=== PATIENT | female | born 1955 | race Caucasian/White ===

== ENCOUNTER 2023-09-02 09:24 | Outpatient (AMB) | payer MEDICARE, SELFPAY ==
--- NOTE | 2023-09-02 09:20 | A.OFFVIS_ITS ---
Intake Vital Signs 09/02/23 09:33 Height 5 ft 8 in Weight 198 lb 2 oz BMI 30.1 BP 136/72 Blood Pressure Location Lt brachial Position Sitting Respiration 16 Pulse 71 Pulse Source Pulse Oximeter Pulse Oximetry (%) 97 Oxygen Delivery Method Room Air Intake Visit Reasons: Numbness Intake Note: Pt presents to the office for new patient evaluation for numbness of toes on the right foot. She reports she was diagnosed with neuropathy about 8 years ago and this loss of sensation has gradually gotten worse. Field Collector Required: No Allergies cephalexin Allergy (Verified 09/02/23 09:31) Rash doxycycline Allergy (Verified 09/02/23 09:31) Rash latex Allergy (Verified 09/02/23:) Rash Penicillins Allergy (Verified 09/02/23:) Unknown prednisone Allergy (Verified 09/02/23:) Rash topical corticosteroids Allergy (Uncoded 09/02/23 09:) Rash Medication List - Last Reconciled 09/02/23 by Cande Christianson MD bupropion HCl 200 mg PO QAM carvedilol 6.25 mg PO BID cyanocobalamin (vitamin B-12) 1,000 mcg PO DAILY estradiol acetate (Femring) vaginal gabapentin 300 mg PO TID lorazepam 0.5 mg PO DAILY PRN paroxetine HCl 15 mg PO QPM progesterone micronized 100 mg PO BEDTIME HPI HPI Comments History of Present Illness Details 67y/o female comes for evaluation of num bness. It started about 8 years ago - started with weakness of her left foot, diagnosed iwth foot drop due to disc herniation and she also had numbness in her left foot .Later she started having right foot numbness.she was evaluated and diagnosed with Peripheral Neuropathy ? and was told it was from her back and has progressed since then. No symptoms in her hands. Now her main sensory symptoms are numbness and episodes of tingling in her right toes ( not the big toe).she c/o hip pain but no back, or shooting pain from the back. she is not sure if her left foot is numb now.she has some weakness and says she trips when she walks upstairs. she has urinary urgency . she denies neck pain, she had surgery in her neck 11 years ago by and has been doing good since then. she is a poor historian and says she is overwhelmed with her medical issues and her psychological issues. [facility] Medical History (Updated 09/02/23 @ 10:18 by Cande Christianson MD) Numbness and tingling of both legs Left foot drop Depression CKD (chronic kidney disease) Lumbar spondylosis Hyperlipidemia HTN (hypertension) Anxiety Cataract (lens) fragments in eye following cataract surgery, bilateral Surgical History H/O neck surgery H/O knee surgery Hx of colonoscopy Hx of laminectomy Family History Father CAD (coronary artery disease) Mother Dementia Social History Household Members: Spouse Housing: House Alcohol intake: current Patient Tobacco Use Status: Never used Tobacco Review of Systems Const Reports weight gain Musc Reports numbness and Reports tingling Neuro Reports numbness and Reports tingling Psych Reports anxiety and Reports depression Physical Exam Vital Signs: Last Vital Signs Pulse 71 09/02/23 09:33 Resp 16 09/02/23 09:33 BP 136/72 09/02/23 09:33 Pulse Ox 97 09/02/23 09:33 Oxygen Delivery Method Room Air 09/02/23 09:33 BMI result Body Mass Index 30.1 Const General: cooperative, healthy appearing and comfortable Nutritional Appearance: average body habitus Orientation/consciousness: patient oriented x3 Eyes Pupils: Equal, round and reactive pupils present Neuro Other: mild left foot weakness Semaj foot - varicosities , bunion in left redness in the semaj feet General: patient oriented x3, No gait normal, tone normal and moves all extremities Cranial nerves: Yes Facial sensation intact/muscles of mastication intact, Yes Equal, round and reactive pupils present, Yes Bilaterally intact EOM present, Yes Nystagmus not present, Yes Normal facial strength present, Yes Midline tongue present and Yes Symmetric palate elevation present Cognition (Neuro): normal cognition Gait exam (Neuro): Normal gait present Deep tendon reflexes (DTR's): Right triceps reflex intensity grade: 1+, Left triceps reflex intensity grade: 1+, Rt Biceps (C5, C6): 1+, Left biceps reflex intensity grade: 1+, Right brachioradialis reflex intensity grade: 1+, Left brachioradialis reflex intensity grade: 1+, Right patellar reflex intensity grade: 1+ and Left patellar reflex intensity grade: 0 Coordination: [id number] test normal Psych Affect: Anxious affect present Assessment & Plan Assessment & Plan (1) Numbness: Code(s): R20.0 - Anesthesia of skin (2) Left foot drop: Code(s): M21.372 - Foot drop, left foot Plan EMG Nerve conduction study to evaluate will consider referral to podiatry suggested compression socks Orders: Orders NE electromyogram (EMG) Today R20.0 - Anesthesia of skin, R20.2 - Paresthesia of skin Coding Level of Care Code New Pt Level 4 (10158) Diagnoses Numbness R20.0 Left foot drop M21.372
[2023-09-02 09:33] VITALS: BP 136/72; PULSE 71; RESP 16; O2SAT 97; BMI 30.1
== END 2023-09-02 10:23 | disposition home or self-care (01) ==
PROVIDERS: PCP Family Medicine; Visit Provider Psychiatry & Neurology Neurology
DX: R20.0 Anesthesia of skin (principal); M21.372 Foot drop, left foot
CPT/HCPCS: 99204

== ENCOUNTER → 2023-09-02 09:24 | Outpatient (BNVA) | payer MEDICARE, SELFPAY | PROVIDERS: PCP Family Medicine; Visit Provider Psychiatry & Neurology Neurology | DX: R20.0 Anesthesia of skin (principal); M21.372 Foot drop, left foot | CPT/HCPCS: 99202 ==

== ENCOUNTER 2023-12-27 13:42 | Outpatient (AMB) | payer MEDICARE, SELFPAY ==
--- NOTE | 2023-12-27 13:14 | MHC.OFFVIS ---
Intake Vital Signs 12/27/23 13:44 Height 5 ft 8 in Weight 197 lb BMI 30.0 Pulse 75 Pulse Source Pulse Oximeter Pulse Oximetry (%) 100 Oxygen Delivery Method Room Air Intake Visit Reasons: Shortness of breath Life Enrichment Director Required: No Stone Gang Sawyer: Stone Gang Sawyer offered & declined Accompanied by: Spouse Allergies cephalexin Allergy (Verified 12/27/23 13:49) Rash doxycycline Allergy (Verified 12/27/23 13:49) Rash latex Allergy (Verified 12/27/23 13:49) Rash Penicillins Allergy (Verified 12/27/23 13:49) Unknown prednisone Allergy (Verified 09/02/23 09:31) Rash topical corticosteroids Allergy (Uncoded 09/02/23 09:31) Rash HPI Shortness of breath HPI Details Nathalie is above 68-year-old female, never smoker, with underlying hypertension chronic kidney disease. She was referred by PCP for pulmonary evaluation. She reports persistent dry cough, dyspnea with moderate exertion and intermittent wheezing that developed mid September after URI. She was treated with doxycycline, prednisone, then a Z-Paul for persistent symptoms. Chest x-ray on 11/20 was negative for anything acute. Reports testing +RSV during this time. On December 10 she was started on an ICS with slowly resolving symptoms however discontinued after two weeks of use. Reports no improvement with albuterol. Patient denies any prior history of asthma. Patient denies any occupational exposures, works as a staff radiation therapist at [employer]. She reports environmental allergies, no recent testing. She denies post nasal drip. She reports sister with asthma otherwise denies any pertinent family history. [facility] Medical History (Updated 12/27/23 @ 16:05 by Sheron Barry NP) Numbness and tingling of both legs Left foot drop Depression CKD (chronic kidney disease) Lumbar spondylosis Hyperlipidemia HTN (hypertension) Anxiety Cataract (lens) fragments in eye following cataract surgery, bilateral Surgical History H/O neck surgery H/O knee surgery Hx of colonoscopy Hx of laminectomy Family History Father CAD (coronary artery disease) Mother Dementia Social History (Updated 12/27/23 @ 13:54 by Alexus Crocker LPN) Household Members: Spouse Housing: House Alcohol intake: current Patient Tobacco Use Status: Never used Tobacco Review of Systems Const Denies chills, Denies excessive sweating, Denies fever(s), Denies headache(s) and Denies night sweats Eyes Denies dry eyes, Denies irritation and Denies itchy eyes ENT Reports Normal hearing present, Denies headache(s), Denies nasal congestion, Denies nasal discharge, Denies post nasal drip and Denies sore throat Card Denies chest pain, Denies chest pain at rest, Denies chest pain with activity, Denies claudication, Denies leg edema, Denies dyspnea, Reports dyspnea on exertion, Denies orthopnea and Denies paroxysmal nocturnal dyspnea Resp Denies chest congestion, Reports cough, Denies excessive phlegm production, Denies pain on inspiration, Denies pain with cough, Denies dyspnea, Reports dyspnea on exertion, Denies stridor and Reports wheezing Musc Denies myalgias Neuro Reports Normal hearing present and Denies headache(s) Endo Denies excessive sweating Freeman/Lymph Denies lymphadenopathy Aller/Immun Denies itchy eyes, Denies seasonal rhinorrhea and Reports wheezing Physical Exam Vital Signs: Last Vital Signs Pulse 75 12/27/23 13:44 Pulse Ox 100 12/27/23 13:44 Oxygen Delivery Method Room Air 12/27/23 13:44 BMI result Body Mass Index 30.0 Const General: cooperative, healthy appearing, comfortable, no acute distress, well developed and alert Orientation/consciousness: patient oriented x3 Limitations: no limitations HEENT Head: Yes normal to inspection, Yes normocephalic and Yes atraumatic Ears: hearing grossly normal bilaterally and external ears normal Eyes General: appearance normal, both eyes and all related structures Eyelids: Yes eyelids normal Sclerae: sclerae normal EOM: EOMs intact bilaterally Neck Neck: Yes normal visual inspection and Yes no lymphadenopathy Lymphatic: no lymphadenopathy noted Chest Chest palpation & inspection: normal inspection of the chest Resp Other: diminished lung sounds improved after albuterol neb Effort & Inspection: normal respiratory effort, able to speak in complete sentences, no audible wheezes, no cough, no stridor, not tachypneic, no tripod positioning and no use of accessory muscles Auscultation: clear to auscultation bilaterally Cardio Jugular venous distension: no JVD Rate: regular rate Rhythm: regular rhythm Skin Other: warm, dry General skin exam: no rashes or lesions noted Neuro General: patient oriented x3 Cranial nerves: Yes Normal hearing present Cognition (Neuro): normal cognition Gait exam (Neuro): Normal gait present Extrem General: Yes normal to inspection, Yes capillary refill normal, Yes no clubbing, cyanosis or edema and Yes no pedal edema Psych Appearance: grossly normal and well kempt Speech and movement: Normal speech and movement present and Clear speech present Affect: normal affect Attitude: cooperative Thought process: Normal thought process present Thought content: Normal thought content present Insight: Good insight present (Psych) Judgement: Good judgement present (Psych) Office Procedures Nebulizer Treatment Nebulizer Treatment [id number] RX initial, or Nebulizer Subsequent Treatment Office Meds albuterol sulfate 2.5 mg/3 mL (0.083 %) solution for nebulization Performing Provider: Sheron Barry NP Performing Location: [facility] Administered by: Alexus Crocker LPN on 12/27/23 14:00 Dose Route Admin Location Dispensed Lot Number Expiration Date [facility] Director News 2.5 mg inhalation 3 mL [id number] 09/26/24 [id number] [facility] Assessment & Plan Assessment & Plan (1) Cough: Code(s): R05.9 - Cough, unspecified (2) Dyspnea: Code(s): R06.00 - Dyspnea, unspecified (3) Environmental allergies: Code(s): Z91.09 - Other allergy status, other than to drugs and biological substances Parker Zelaya presents with slowly resolving dry cough and dyspnea after URI in September, despite doxycycline, azithromycin and prednisone. Will send for PFT to assess for any underlying obstructive defect contributing to symptoms as well as RAST testing. CXR unremarkable. Will send for chest CT to evaluate for any parenchymal disease contributing to cough. Nebulizer treatment with albuterol given with improvement in symptoms. Advised patient to restart ICS can use albuterol PRN. Will send in Qvar in place of Arnuity, as patient developed hoarseness with use. All questions were answered and patient is in agreement of plan. Will follow-up to review response to inhaler as well as results of PFT and chest CT. Orders: Orders AMB Nebulizer Treatment Today R05.9 - Cough, unspecified, R06.00 - Dyspnea, unspecified Immunoglobulin E Today Z91.09 - Other allergy status, other than to drugs and biological substances Complete Blood Count Auto Diff Today R05.9 - Cough, unspecified, R06.00 - Dyspnea, unspecified Resp Allergy Profile Region I Today Z91.09 - Other allergy status, other than to drugs and biological substances PFT pulmonary function test Today R06.00 - Dyspnea, unspecified CT chest wo IV con Today R05.9 - Cough, unspecified, R06.00 - Dyspnea, unspecified Medications: New beclomethasone dipropionate 40 mcg/actuation (Qvar RediHaler) 1 inh inhalation BID 10.6 grams 2RF Coding Level of Care Code New Pt Level 4 (25768) Diagnoses Cough R05.9 Dyspnea R06.00 Environmental allergies Z91.09 CPT Codes Nebulizer Treatment - Nebulizer Treatment, initial or subsequent: [id number]/MDI RX initial, or Nebulizer Subsequent Treatment ([id number])
[2023-12-27 13:44] VITALS: PULSE 75; O2SAT 100
== END 2023-12-27 14:44 | disposition home or self-care (01) ==
PROVIDERS: PCP Family Medicine; Visit Provider Nurse Practitioner Family
DX: R05.9 Cough, unspecified (principal); R06.00 Dyspnea, unspecified; Z91.09 Other allergy status, other than to drugs and biological substances
CPT/HCPCS: 99204

== ENCOUNTER → 2023-12-27 13:42 | Outpatient (BNVA) | payer MEDICARE, SELFPAY | PROVIDERS: PCP Family Medicine; Visit Provider Nurse Practitioner Family | DX: R05.9 Cough, unspecified (principal); R06.00 Dyspnea, unspecified; Z91.09 Other allergy status, other than to drugs and biological substances | CPT/HCPCS: 94640; 99202 ==

== ENCOUNTER 2024-01-01 10:25 | Outpatient (REF) | payer MEDICARE, SELFPAY ==
[2024-01-01 14:26] LABS: MANUAL DIFF FLAG NO
[2024-01-01 14:32] LABS: Basophils Percent Auto 0.6 % (0-2); Eosinophils Absolute Auto 0.3 X10*3/uL (0.0-0.4); Eosinophils Percent Auto 3.9 % (0-4); Hematocrit 39.7 % (37.0-47.0); Hemoglobin 12.8 g/dl (12.0-16.0); Imm Gran Abs Auto 0.02 X10*3/uL (0.00-0.03); Imm Gran Pct Auto 0.3 % (0.0-0.4); Lymphocytes Absolute Auto 2.4 X10*3/uL (1.2-4.9); Lymphocytes Percent Auto 33.6 % (20-40); Mean Corpuscular HGB Conc 32.2 g/dl (31.0-35.0); Mean Corpuscular Hemoglobin 31.8 pg (27.0-33.0); Mean Corpuscular Volume 98.5 fL (80.0-98.0); Mean Platelet Volume 10.4 fL (9.4-12.3); Monocytes Absolute Auto 0.7 X10*3/uL (0.1-1.2); Monocytes Percent Auto 9.5 % (2-11); Neutrophils Absolute Auto 3.7 x10*3/uL (2.0-8.3); Neutrophils Percent Auto 52.1 % (45-73); Platelet Count 309 X10*3/uL (160-400); Red Blood Count 4.03 X10*6/uL (4.20-5.50); Red Cell Distribution Width 13.6 % (11.0-16.0); White Blood Count 7.1 X10*3/uL (4.8-10.8)
[2024-01-09 10:36] LABS: Class Cottonwood 0/1; Immunoglobulin E 43
[2024-01-09 10:40] LABS: T014 - IgE Cottonwood 0.12 (H)
[2024-01-09 10:41] LABS: Class Cockroach 0; Class Dermatophagoides farinae 0; Class Mouse Urine Protein 0; D002 - IgE D farinae <0.10; E072-IgE Mouse Urine <0.10; I006-IgE Cockroach, German <0.10
[2024-01-09 10:42] LABS: Class Alternaria alternata 0; Class Aspergillus fumigatus 0; Class Bermuda Grass 0; Class Birch 0; Class Cat Dander 0; Class Cladosporium herbarum 0; Class Common Ragweed 0; Class Derm. pterony 0; Class Dog Dander 0; Class Elm 0; Class Maple Box Elder 0; Class Mountain Cedar 0; Class Mugwort 0; Class Oak 0; Class Penicillium crysogenum 0; Class Rough Pigweed 0; Class Sheep Sorrel 0; Class Sycamore 0; Class Timothy Grass 0; Class Walnut Tree 0; Class White Ash 0; Class White Mulberry 0; E001 - IgE Cat Dander <0.10; E005 - IgE Dog Dander <0.10
[2024-01-09 10:43] LABS: D001 IgE D pteronyssinus <0.10; G002 IgE Bermuda Grass <0.10; M001 IgE Penicillium chrysogen <0.10; T001 IgE Maple/Box Elder <0.10; T003 IgE Common Silver Birch <0.10; T008 IgE Elm, American <0.10; T015 - IgE Ash, White <0.10; T070 - IgE White Mulberry <0.10; W001 - IgE Ragweed, Short <0.10; W006 - IgE Mugwort <0.10; W014 IgE Pigweed, Common <0.10; W018 IgE Sheep Sorrel <0.10
[2024-01-09 10:44] LABS: G006 - IgE Timothy Grass <0.10; M002 - IgE Cladosporium herbar <0.10; M003 - IgE Aspergillus fumigat <0.10; M006 - IgE Alternaria alternat <0.10; T006 - IgE Cedar, Mountain <0.10; T007 - IgE Oak, White <0.10; T010 - IgE Walnut <0.10; T011 - IgE Maple Leaf Sycamore <0.10
== END 2024-01-01 10:26 | disposition home or self-care (01) ==
LOC: HO.WFDLDS 10:25
PROVIDERS: Visit Provider Nurse Practitioner Family
DX: Z91.09 Other allergy status, other than to drugs and biological substances (principal); R05.9 Cough, unspecified; R06.00 Dyspnea, unspecified
CPT/HCPCS: 36415; 82785; 85025; 86003

== ENCOUNTER 2024-01-01 12:34 | Outpatient (REF) | payer MEDICARE, SELFPAY ==
[2024-01-01 07:48] VITALS: PULSE 71; RESP 16; O2SAT 97
--- NOTE | 2024-01-01 14:56 | PFT_ITS ---
Flows: FEV1: 89 % of predicted at 2.26 L FVC: 91 % of predicted at 2.99 L FEV1/FVC: 76 % Bronchodilator response: Absent Volumes: Total lung capacity: 90 % of predicted at 5.14 L Residual volume: 90 % of predicted at 2.00 L Slow vital capacity: 91 % of predicted at 3.14 L Expiratory reserve volume: 48 % of predicted at 0.42 L Diffusion capacity: Mildly decreased. Impression: No obstructive or restrictive ventilatory defect. No bronchodilator response. Decreased expiratory reserve volume suggests extrathoracic restriction likely secondary to abdominal obesity. Isolated defect in diffusion capacity suggests pulmonary edema. Clinical correlation is advised. MTDD
== END 2024-01-01 12:35 | disposition home or self-care (01) ==
LOC: HO.RESP 12:34
PROVIDERS: PCP Family Medicine; Visit Provider Nurse Practitioner Family
DX: R06.00 Dyspnea, unspecified (principal)
CPT/HCPCS: 94010; 94640; 94727; 94729

== ENCOUNTER → 2024-01-01 14:56 | Outpatient (BNV) | payer MEDICARE, SELFPAY | PROVIDERS: PCP Family Medicine; Visit Provider Internal Medicine Pulmonary Disease | DX: R06.00 Dyspnea, unspecified (principal) | CPT/HCPCS: 94060; 94727; 94729 ==

== ENCOUNTER 2024-01-09 09:50 | Outpatient (REF) | payer MEDICARE, SELFPAY ==
--- NOTE | 2024-01-09 | EMG_ITS ---
Bilateral tibial and peroneal motor studies were performed. Bilateral superficial peroneal and sural sensory studies were performed and median and lateral plantar studies were also performed. Tibial H reflexes were obtained and paraspinal muscles were tested with a needle. IMPRESSION: Moderate to severe sensory and motor peripheral neuropathy with axonal loss but also some features suggestive of demyelination. There was no evidence of radiculopathy, at least acute radiculopathy. MD RONNIE Godfrey/XIMENA / [phone]
== END 2024-01-09 09:51 | disposition home or self-care (01) ==
LOC: HO.NEURO 09:50
PROVIDERS: PCP Family Medicine; Visit Provider Psychiatry & Neurology Neurology
DX: R20.0 Anesthesia of skin (principal); R20.2 Paresthesia of skin
CPT/HCPCS: 95886; 95913

== ENCOUNTER 2024-01-16 08:44 | Outpatient (AMB) | payer MEDICARE, SELFPAY ==
--- NOTE | 2024-01-16 08:49 | A.OFFVIS_ITS ---
Intake Vital Signs 01/16/24 08:50 Height 5 ft 8 in Weight 195 lb BMI 29.6 BP 108/66 Blood Pressure Location Rt brachial Position Sitting Respiration 16 Pulse 76 Pulse Source Palpation Intake Visit Reasons: 3 mnts f/u for TLE (dizziness)-CONF Intake Note: Pt presents to the office for a 3 month follow up for left foot drop. Pt is here to discuss results of EMG performed 01/09/24. Government Documents Librarian Required: No Allergies cephalexin Allergy (Verified 01/16/24 08:49) Rash doxycycline Allergy (Verified 01/16/24 08:49) Rash latex Allergy (Verified 01/16/24 08:49) Rash Penicillins Allergy (Verified 01/16/24 08:49) Unknown prednisone Allergy (Verified 01/16/24 08:49) Rash topical corticosteroids Allergy (Uncoded 01/16/24 08:49) Rash Medication List - Last Reconciled 01/16/24 by Cande Christianson MD beclomethasone dipropionate 40 mcg/actuation (Qvar RediHaler) 1 inh inhalation BID bupropion HCl 200 mg PO QAM carvedilol 6.25 mg PO BID cyanocobalamin (vitamin B-12) 1,000 mcg PO DAILY estradiol acetate (Femring) vaginal fluticasone furoate 100 mcg/actuation (Arnuity Ellipta) 1 inh inhalation DAILY fluticasone propionate 44 mcg/actuation 1 puff inhalation BID gabapentin 300 mg PO TID lorazepam 0.5 mg PO DAILY PRN paroxetine HCl 15 mg PO QPM progesterone micronized 100 mg PO BEDTIME rosuvastatin 5 mg PO DAILY HPI HPI Comments History of Present Illness Details 68y/o female comes for follow up of neur opathy EMG was c/w moderate to severe peripherla neuropathy- axonal It started about 8 years ago - started with weakness of her left foot, diagnosed iwth foot drop due to disc herniation and she also had numbness in her left foot .Later she started having right foot numbness.she was evaluated and diagnosed with Peripheral Neuropathy ? and was told it was from her back and has progressed since then. No symptoms in her hands. Now her main sensory symptoms are numbness and episodes of tingling in her right toes ( not the big toe).she c/o hip pain but no back, or shooting pain from the back. she is not sure if her left foot is numb now.she has some weakness and says she trips when she walks upstairs. she has urinary urgency . she denies neck pain, she had surgery in her neck 11 years ago by and has been doing good since then. [facility] Medical History Peripheral neuropathy Peripheral neuropathy Numbness and tingling of both legs Left foot drop Depression CKD (chronic kidney disease) Lumbar spondylosis Hyperlipidemia HTN (hypertension) Anxiety Cataract (lens) fragments in eye following cataract surgery, bilateral Surgical History H/O neck surgery H/O knee surgery Hx of colonoscopy Hx of laminectomy Family History Father CAD (coronary artery disease) Mother Dementia Social History Household Members: Spouse Housing: House Alcohol intake: current Patient Tobacco Use Status: Never used Tobacco Physical Exam Vital Signs: Last Vital Signs Pulse 76 01/16/24 08:50 Resp 16 01/16/24 08:50 BP 108/66 01/16/24 08:50 BMI result Body Mass Index 29.6 Const General: cooperative, healthy appearing and comfortable Nutritional Appearance: average body habitus Orientation/consciousness: patient oriented x3 Eyes Pupils: Equal, round and reactive pupils present Neuro Other: mild left foot weakness Semaj foot - varicosities , bunion in left redness in the semaj feet General: patient oriented x3, No gait normal, tone normal and moves all extremities Cranial nerves: Yes Equal, round and reactive pupils present Cognition (Neuro): normal cognition Gait exam (Neuro): Normal gait present Deep tendon reflexes (DTR's): Right triceps reflex intensity grade: 1+, Left triceps reflex intensity grade: 1+, Rt Biceps (C5, C6): 1+, Left biceps reflex intensity grade: 1+, Right brachioradialis reflex intensity grade: 1+, Left brachioradialis reflex intensity grade: 1+, Right patellar reflex intensity grade: 1+ and Left patellar reflex intensity grade: 0 Coordination: [id number] test normal Psych Affect: Anxious affect present Assessment & Plan Assessment & Plan (1) Peripheral neuropathy: Comment: moderate to severe axonal, sensory motor with ? demyelination Code(s): G62.9 - Polyneuropathy, unspecified Plan will check her Vit B 12 , TSH DEVON ESR CBC CMP Suggested Nervive for symptoms relief Gabapentin 300mg tid Orders: Orders Vitamin B12 and Folate 2 Weeks G62.9 - Polyneuropathy, unspecified TSH reflex Free T4 2 Weeks G62.9 - Polyneuropathy, unspecified Erythrocyte Sedimentation Rate 2 Weeks G62.9 - Polyneuropathy, unspecified Vitamin D 25-OH (D2 and D3) 2 Weeks G62.9 - Polyneuropathy, unspecified Comprehensive Met. Panel 2 Weeks G62.9 - Polyneuropathy, unspecified Complete Blood Count Auto Diff 2 Weeks G62.9 - Polyneuropathy, unspecified Coding Level of Care Code Est Pt Level 4 (94375) Diagnoses Peripheral neuropathy G6.9
[2024-01-16 08:50] VITALS: BP 108/66; PULSE 76; RESP 16; BMI 29.6
== END 2024-01-16 09:25 | disposition home or self-care (01) ==
PROVIDERS: PCP Family Medicine; Visit Provider Psychiatry & Neurology Neurology
DX: G62.9 Polyneuropathy, unspecified (principal)
CPT/HCPCS: 99214

== ENCOUNTER → 2024-01-16 08:44 | Outpatient (BNVA) | payer MEDICARE, SELFPAY | PROVIDERS: PCP Family Medicine; Visit Provider Psychiatry & Neurology Neurology | DX: G62.9 Polyneuropathy, unspecified (principal) | CPT/HCPCS: 99212 ==

== ENCOUNTER 2024-01-31 15:00 | Outpatient (REF) | payer MEDICARE, SELFPAY ==
--- NOTE | ~2024-01-31 | CT_ITS ---
EXAMINATION: CT CHEST WITHOUT CONTRAST CLINICAL INFORMATION: Cough. COMPARISON: None available. TECHNIQUE: Multidetector volumetric CT imaging of the chest was done. Axial MIP volume rendering provided. Sagittal and coronal reformatted images were obtained. This CT examination was performed using dose optimization techniques as appropriate, variously including the following: *Automated exposure control. *Adjustment of mA and/or kV according to patient size (this includes techniques or standardized protocols for targeted exams where dose is matched to indication/reason for exam; i.e. extremities or head). *Use of iterative reconstruction technique. DLP: 184 mGy-cm FINDINGS: LUNGS: Some mild right apical scarring is present. Mild bronchial thickening is seen. No significant emphysematous changes are present. No suspicious lung masses. No consolidations. MEDIASTINUM: The mediastinum is normal. CORONARY ARTERY CALCIFICATION: None visualized on this study. PLEURA: There is no pleural effusion. No pleural mass or thickening. AXILLA: No lymphadenopathy. UPPER ABDOMEN: A tiny hiatal hernia is present. OSSEOUS STRUCTURES: Mild degenerative changes are present in the spine. CT/CT chest wo IV con IMPRESSION: A cause for the patient's cough has not been found. No occult malignancy is seen. There is mild bronchial thickening. Fleischner guidelines were followed.
== END 2024-01-31 15:01 | disposition home or self-care (01) ==
LOC: HO.CT 15:00
PROVIDERS: PCP Family Medicine; Visit Provider Nurse Practitioner Family
DX: R05.9 Cough, unspecified (principal); R06.00 Dyspnea, unspecified
CPT/HCPCS: 71250

== ENCOUNTER 2024-02-18 09:49 | Outpatient (AMB) | payer MEDICARE, SELFPAY ==
--- NOTE | 2024-02-18 09:50 | MHC.OFFVIS ---
Vital Signs 02/18/24 09:53 Height 5 ft 8 in Weight 193 lb 6 oz BMI 29.4 BP 118/62 Blood Pressure Location Rt brachial Position Sitting Pulse 72 Pulse Source Pulse Oximeter Pulse Oximetry (%) 100 Oxygen Delivery Method Room Air Intake Visit Reasons: dyspnea: f/u results on pft and CT Allergies cephalexin Allergy (Verified 02/18/24 09:55) Rash doxycycline Allergy (Verified 02/18/24 09:55) Rash latex Allergy (Verified 02/18/24 09:55) Rash Penicillins Allergy (Verified 02/18/24 09:55) Unknown prednisone Allergy (Verified 02/18/24 09:55) Rash topical corticosteroids Allergy (Uncoded 02/18/24 09:55) Rash HPI HPI dyspnea: f/u results on pft and CT: Details: Nathalie is above 68-year-old female, never smoker, with underlying hypertension and chronic kidney disease. At the last visit she reported persistent dry cough, dyspnea with moderate exertion and intermittent wheezing that developed mid September after URI. She was placed on Arnuity which patient has not used consistently as she feels her symptoms are very infrequent. She continues to report occasional wheezing while laying down, otherwise denies dyspnea or cough. She denies orthopnea or BLE. She also notes chest tightness and dyspnea with exposures to cold/hot. She has not used her albuterol when triggered. Today she presents to review chest CT, PFT and RAST. [facility] Medical History Peripheral neuropathy Peripheral neuropathy Numbness and tingling of both legs Left foot drop Depression CKD (chronic kidney disease) Lumbar spondylosis Hyperlipidemia HTN (hypertension) Anxiety Cataract (lens) fragments in eye following cataract surgery, bilateral Surgical History H/O neck surgery H/O knee surgery Hx of colonoscopy Hx of laminectomy Family History Father CAD (coronary artery disease) Mother Dementia Social History Household Members: Spouse Housing: House Alcohol intake: current Patient Tobacco Use Status: Never used Tobacco Review of Systems Const Denies chills, Denies excessive sweating, Denies fever(s), Denies headache(s) and Denies night sweats Eyes Denies dry eyes, Denies irritation and Denies itchy eyes ENT Reports Normal hearing present, Denies headache(s), Denies nasal congestion, Denies nasal discharge, Denies post nasal drip and Denies sore throat Card Denies chest pain, Denies chest pain at rest, Denies chest pain with activity, Denies claudication, Denies leg edema, Denies dyspnea, Denies orthopnea and Denies paroxysmal nocturnal dyspnea Resp Denies chest congestion, Denies excessive phlegm production, Denies pain on inspiration, Denies pain with cough, Denies dyspnea, Denies stridor and Reports wheezing Musc Denies myalgias Neuro Reports Normal hearing present and Denies headache(s) Endo Denies excessive sweating Freeman/Lymph Denies lymphadenopathy Aller/Immun Denies itchy eyes, Denies seasonal rhinorrhea and Reports wheezing Physical Exam Vital Signs: Last Vital Signs Pulse 72 02/18/24 09:53 BP 118/62 02/18/24 09:53 Pulse Ox 100 02/18/24 09:53 Oxygen Delivery Method Room Air 02/18/24 09:53 BMI result Body Mass Index 29.4 Const General: cooperative, healthy appearing, comfortable, no acute distress, well developed and alert Orientation/consciousness: patient oriented x3 Limitations: no limitations HEENT Head: Yes normal to inspection, Yes normocephalic and Yes atraumatic Ears: hearing grossly normal bilaterally and external ears normal Eyes General: appearance normal, both eyes and all related structures Eyelids: Yes eyelids normal Sclerae: sclerae normal EOM: EOMs intact bilaterally Neck Neck: Yes normal visual inspection and Yes no lymphadenopathy Lymphatic: no lymphadenopathy noted Chest Chest palpation & inspection: normal inspection of the chest Resp Effort & Inspection: normal respiratory effort, able to speak in complete sentences, no audible wheezes, no cough, no stridor, not tachypneic, no tripod positioning and no use of accessory muscles Auscultation: clear to auscultation bilaterally Cardio Jugular venous distension: no JVD Rate: regular rate Rhythm: regular rhythm Skin Other: warm, dry General skin exam: no rashes or lesions noted Neuro General: patient oriented x3 Cranial nerves: Yes Normal hearing present Cognition (Neuro): normal cognition Gait exam (Neuro): Normal gait present Extrem General: Yes normal to inspection, Yes capillary refill normal, Yes no clubbing, cyanosis or edema and Yes no pedal edema Psych Appearance: grossly normal and well kempt Speech and movement: Normal speech and movement present and Clear speech present Affect: normal affect Attitude: cooperative Thought process: Normal thought process present Thought content: Normal thought content present Insight: Good insight present (Psych) Judgement: Good judgement present (Psych) Results Reviewed Results Reviewed: [address] [address] [address] Scan Report Signed Patient: Nathalie Garcia MR#: [id number] : 1955 Acct:[id number] Age/Sex: 68 / F ADM Date: 01/31/24 Loc: HO.CT Attending Dr: Sheron Barry NP Ordering Physician: Sheron Barry NP Date of Service: 01/31/24 Procedure(s): CT chest wo IV con Accession Number(s): [id number] cc: Elbert Merida DO; Sheron Barry NP~ EXAMINATION: CT CHEST WITHOUT CONTRAST CLINICAL INFORMATION: Cough. COMPARISON: None available. TECHNIQUE: Multidetector volumetric CT imaging of the chest was done. Axial MIP volume rendering provided. Sagittal and coronal reformatted images were obtained. This CT examination was performed using dose optimization techniques as appropriate, variously including the following: *Automated exposure control. *Adjustment of mA and/or kV according to patient size (this includes techniques or standardized protocols for targeted exams where dose is matched to indication/reason for exam; i.e. extremities or head). *Use of iterative reconstruction technique. DLP: 184 mGy-cm FINDINGS: LUNGS: Some mild right apical scarring is present. Mild bronchial thickening is seen. No significant emphysematous changes are present. No suspicious lung masses. No consolidations. MEDIASTINUM: The mediastinum is normal. CORONARY ARTERY CALCIFICATION: None visualized on this study. PLEURA: There is no pleural effusion. No pleural mass or thickening. AXILLA: No lymphadenopathy. UPPER ABDOMEN: A tiny hiatal hernia is present. OSSEOUS STRUCTURES: Mild degenerative changes are present in the spine. CT/CT chest wo IV con IMPRESSION: A cause for the patient's cough has not been found. No occult malignancy is seen. There is mild bronchial thickening. Fleischner guidelines were followed. Dictated By: Valerio Lau MD Signed By: <Electronically signed by Valerio Lau MD in OV> 02/10/24 2305 DD/ 1527 TD/TT: Bag Builder: ELENA Assessment & Plan Assessment & Plan (1) Cough: Code(s): R05.9 - Cough, unspecified Category: Medical (2) Dyspnea: Code(s): R06.00 - Dyspnea, unspecified Category: Medical (3) Environmental allergies: Code(s): Z91.09 - Other allergy status, other than to drugs and biological substances Category: Medical Plan RAST revealed allergy to cottonwood tree, otherwise negative. Reviewed PFT which did not reveal an obstructive or restrictive ventilatory defect. There was no bronchodilator response. Decreased expiratory reserve volume suggests extrathoracic restriction likely secondary to abdominal obesity. There was an isolated defect in diffusion capacity suggestive of pulmonary edema. Will send for echo given findings and dyspnea with moderate exertion. Reviewed chest CT which was unremarkable. Recommended patient use albuterol PRN and if uses with good effect, consider using Arnuity consistently. All questions were answered and patient is in agreement of plan. Will follow-up to review results of echo. Orders: Orders CA echo transthoracic complete Today R06.00 - Dyspnea, unspecified, R94.2 - Abnormal results of pulmonary function studies Medications: New albuterol sulfate 90 mcg/actuation 2 puffs inhalation Q4-6H PRN 8.5 grams 1RF shortness of breath or wheezing Coding Level of Care Code Est Pt Level 4 (30477) Diagnoses Cough R05.9 Dyspnea R06.00 Environmental allergies Z91.09
[2024-02-18 09:53] VITALS: BP 118/62; PULSE 72; O2SAT 100; BMI 29.4
== END 2024-02-18 10:35 | disposition home or self-care (01) ==
PROVIDERS: PCP Family Medicine; Visit Provider Nurse Practitioner Family
DX: R05.9 Cough, unspecified (principal); R06.00 Dyspnea, unspecified; Z91.09 Other allergy status, other than to drugs and biological substances
CPT/HCPCS: 99214

== ENCOUNTER → 2024-02-18 09:49 | Outpatient (BNVA) | payer MEDICARE, SELFPAY | PROVIDERS: PCP Family Medicine; Visit Provider Nurse Practitioner Family | DX: R06.00 Dyspnea, unspecified (principal); R05.9 Cough, unspecified; R94.2 Abnormal results of pulmonary function studies; I12.9 Hypertensive chronic kidney disease with stage 1 through stage 4 chronic kidney disease, or unspecified chronic kidney disease; N18.9 Chronic kidney disease, unspecified; Z91.09 Other allergy status, other than to drugs and biological substances | CPT/HCPCS: 99212 ==

== ENCOUNTER 2024-07-08 13:47 | Outpatient (AMB) | payer MEDICARE, SELFPAY ==
--- NOTE | 2024-07-08 13:48 | MHC.OFFVIS ---
Vital Signs 07/08/24 13:49 Height 5 ft 8 in Weight 187 lb 6 oz BMI 28.5 BP 110/64 Blood Pressure Location Rt brachial Position Sitting Pulse 72 Pulse Source Pulse Oximeter Pulse Oximetry (%) 99 Oxygen Delivery Method Room Air Intake Visit Reasons: dyspnea Allergies cephalexin Allergy (Verified 07/08/24 13:52) Rash Penicillins Allergy (Verified 07/08/24 13:52) Unknown HPI HPI dyspnea: Details: Nathalie is above 68-year-old female, never smoker, with underlying hypertension and chronic kidney disease. At the last visit she reported persistent dry cough, dyspnea with moderate exertion and intermittent wheezing that developed mid September after URI. She was placed on Arnuity and has noticed an improvement in symptoms. Prior PFT revealed mildly decreased DLCO with unremarkable CT. Today she presents to review echo results. [facility] Medical History Peripheral neuropathy Peripheral neuropathy Numbness and tingling of both legs Left foot drop Depression CKD (chronic kidney disease) Lumbar spondylosis Hyperlipidemia HTN (hypertension) Anxiety Cataract (lens) fragments in eye following cataract surgery, bilateral Surgical History H/O neck surgery H/O knee surgery Hx of colonoscopy Hx of laminectomy Family History Father CAD (coronary artery disease) Mother Dementia Social History Household Members: Spouse Housing: House Alcohol intake: current Patient Tobacco Use Status: Never used Tobacco Review of Systems Const Denies chills, Denies excessive sweating, Denies fever(s), Denies headache(s) and Denies night sweats Eyes Denies dry eyes, Denies irritation and Denies itchy eyes ENT Reports Normal hearing present, Denies headache(s), Denies nasal congestion, Denies nasal discharge, Denies post nasal drip and Denies sore throat Card Denies chest pain, Denies chest pain at rest, Denies chest pain with activity, Denies claudication, Denies leg edema, Denies dyspnea, Denies orthopnea and Denies paroxysmal nocturnal dyspnea Resp Denies chest congestion, Denies cough, Denies excessive phlegm production, Denies pain on inspiration, Denies pain with cough, Denies dyspnea, Denies stridor and Denies wheezing Musc Denies myalgias Neuro Reports Normal hearing present and Denies headache(s) Endo Denies excessive sweating Freeman/Lymph Denies lymphadenopathy Aller/Immun Denies itchy eyes, Denies seasonal rhinorrhea and Denies wheezing Physical Exam Vital Signs: Last Vital Signs Pulse 72 07/08/24 13:49 BP 110/64 07/08/24 13:49 Pulse Ox 99 07/08/24 13:49 Oxygen Delivery Method Room Air 07/08/24 13:49 BMI result Body Mass Index 28.5 Const General: cooperative, healthy appearing, comfortable, no acute distress, well developed and alert Orientation/consciousness: patient oriented x3 Limitations: no limitations HEENT Head: Yes normal to inspection, Yes normocephalic and Yes atraumatic Ears: hearing grossly normal bilaterally and external ears normal Eyes General: appearance normal, both eyes and all related structures Eyelids: Yes eyelids normal Sclerae: sclerae normal EOM: EOMs intact bilaterally Neck Neck: Yes normal visual inspection and Yes no lymphadenopathy Lymphatic: no lymphadenopathy noted Chest Chest palpation & inspection: normal inspection of the chest Resp Effort & Inspection: normal respiratory effort, able to speak in complete sentences, no audible wheezes, no cough, no stridor, not tachypneic, no tripod positioning and no use of accessory muscles Auscultation: clear to auscultation bilaterally Cardio Jugular venous distension: no JVD Rate: regular rate Rhythm: regular rhythm Skin Other: warm, dry General skin exam: no rashes or lesions noted Neuro General: patient oriented x3 Cranial nerves: Yes Normal hearing present Cognition (Neuro): normal cognition Gait exam (Neuro): Normal gait present Extrem General: Yes normal to inspection, Yes capillary refill normal, Yes no clubbing, cyanosis or edema and Yes no pedal edema Psych Appearance: grossly normal and well kempt Speech and movement: Normal speech and movement present and Clear speech present Affect: normal affect Attitude: cooperative Thought process: Normal thought process present Thought content: Normal thought content present Insight: Good insight present (Psych) Judgement: Good judgement present (Psych) Assessment & Plan Assessment & Plan (1) Cough: Code(s): R05.9 - Cough, unspecified Category: Medical (2) Dyspnea: Code(s): R06.00 - Dyspnea, unspecified Category: Medical (3) Multiple pulmonary nodules: Code(s): R91.8 - Other nonspecific abnormal finding of lung field Category: Medical Plan Reviewed echo which did not reveal anything significant findings. Prior CT unremarkable, did not reveal any pulmonary edema and PFT normal other than mildly decreased DLCO. Since this is an isolated finding, may be error in test. Offered to resend, however patient declined at this time. She reports respiratory symptoms are controlled on current regimen, advised to continue. Prior chest CT revealed multiple small pulmonary nodules, repeat chest CT ordered to assess stability, to be scheduled 01/2025. All questions were answered and patient is in agreement of plan. Will follow-up in 6 months or sooner if needed. Coding Level of Care Code Est Pt Level 4 (07788) Diagnoses Cough R05.9 Dyspnea R06.00 Multiple pulmonary nodules R91.8
[2024-07-08 13:49] VITALS: BP 110/64; PULSE 72; O2SAT 99; BMI 28.5
== END 2024-07-08 14:22 | disposition home or self-care (01) ==
PROVIDERS: PCP Family Medicine; Visit Provider Nurse Practitioner Family
DX: R05.9 Cough, unspecified (principal); R06.00 Dyspnea, unspecified; R91.8 Other nonspecific abnormal finding of lung field
CPT/HCPCS: 99214

== ENCOUNTER → 2024-07-08 13:47 | Outpatient (BNVA) | payer MEDICARE, SELFPAY | PROVIDERS: PCP Family Medicine; Visit Provider Nurse Practitioner Family | DX: R05.9 Cough, unspecified (principal); R06.00 Dyspnea, unspecified; R91.8 Other nonspecific abnormal finding of lung field | CPT/HCPCS: 99212 ==